=== PATIENT | male | born 1950 | race Caucasian/White ===

== ENCOUNTER → 2018-02-20 | Day surgery (SDC) | payer MEDICARE, OTHER ==
[~2018-02-20] MED LIST: BUPIVACAINE/EPINEPHRINE 0.25% PF 10 ML VIAL ONE; LACTATED RINGER'S 1000 ML INJ 1,000 ML ONE; MIDAZOLAM HCL 2 MG/2 ML VIAL ONE; ONDANSETRON HCL 4 MG/2 ML VIAL IV PUSH ONE; PROPOFOL 200 MG/20 ML AMP IV ONE; ROCURONIUM INJ 50 MG/5 ML VIAL ONE; ceFAZolin 2 GM PREMIX 50 ML ONE
--- NOTE | 2018-02-20 12:44 | TN ---
cc: Mata Ray MD DATE OF SURGERY: 02/20/2018 PREOPERATIVE DIAGNOSES: 1. Symptomatic left inguinal hernia 2. Status post laparoscopic right inguinal hernia repair 8 years ago in [place]. POSTOPERATIVE DIAGNOSES: 1. Symptomatic indirect left inguinal hernia. 2. Status post laparoscopic right inguinal hernia repair 8 years ago in [place]. PROCEDURE: Laparoscopic left inguinal hernia repair with mesh. SURGEON: Mata Ray MD LOAN AND CREDIT MANAGER: JOSELINE Lambert. ANESTHESIA: General LMA. COMPLICATIONS: None. INDICATIONS FOR PROCEDURE: Mr. Strauss is a pleasant 67-year-old gentleman who has a symptomatic left inguinal hernia. He was seen and evaluated in the office. He was found to have a moderate sized left inguinal hernia. He has a history of a right inguinal hernia. He underwent a laparoscopic repair in [place] for an indirect right inguinal hernia in 2009. Operative note showed no dissection on the left side. I therefore advised him we could attempt a laparoscopic procedure on the left side, but we might have to convert to open if the peritoneum was scarred. The patient was agreeable. DETAILS: The patient was identified, brought to the operating room, placed supine on the operating table. After adequate general anesthesia was achieved, the anterior abdomen was prepped and draped in standard surgical fashion. Infraumbilical space anesthetized with 0.25% Marcaine. Infraumbilical incision was made. Dissection was carried down to subcutaneous tissue to the anterior rectus fascia. Anterior rectus fascia was then incised transversely. Rectus muscle was identified and retracted laterally. Preperitoneal space was entered with blunt finger dissection. Blunt dissecting balloon was inserted and easily passed down to the level of the pubis just off to the left of the midline. It was then carefully insufflated under direct vision using 0-degree laparoscope. The dissection was quite smooth with no bleeding. The balloon dissecting balloon was then removed and balloon trocar inserted. Preperitoneal space was insufflated to 11 mm using CO2 gas. Next, two 5 mm trocars were placed in the lower midline under direct vision. Attention was first directed medially were Buck's ligament and pubic tubercle were identified. Dissection proceeded out laterally, identifying the cord structures exiting the internal ring. Traveling with the cord structures was a fairly large peritoneal hernia sac and cord lipoma. Using a [id number]-bwra technique, the hernia sac was carefully stripped off of the cord several centimeters away from the internal ring. The cord lipoma was also reduced out of the inguinal canal. The defect was then photographed. A posterior window was then made behind the cord structures. A piece of polypropylene mesh was inserted with a slit cut for the cord structures. Mesh was placed through the posterior window. The slit was then reapproximated, tightening the internal ring using the tacking device. Cord structures were allowed to pass through the mesh and the internal ring was not too tight. Next, the mesh was secured medially at Buck's ligament and pubic tubercle and superiorly along the posterior abdominal wall fascia. Next, an onlay mesh was placed over the first mesh in order to buttress the slit. This mesh was secured medially and laterally. Mesh was then photographed in place. Indirect and direct spaces were well covered by mesh. Preperitoneal space was then injected with additional local anesthetic. The preperitoneal space was then desufflated by holding the inferior border of the mesh down and the hernia sac up. The peritoneum was found to overlie the mesh, again with excellent coverage of the indirect and direct spaces. All trocars were removed under direct vision. There was a small amount of gas noted within the peritoneal cavity that must have entered during the peritoneal dissection. This was allowed to escape using sharp dissection on the posterior fascia and peritoneum. All gas was removed from the abdominal cavity. The anterior rectus fascia was then repaired using 0 Vicryl in a [id number] fashion. Skin was closed with 4-0 Vicryl. The patient tolerated the procedure well, was awakened and brought to Recovery in stable condition. Please note the [facility] it administrative assistant was medically necessary due to the complexity of the procedure and her surgical expertise as well as her extensive knowledge of my surgical technique. MD YOLIS Kasper/DIPAK , 12:06 PM , 12:44 PM CALE
== END | disposition home or self-care (01) ==
LOC: ESDC 09:29
PROVIDERS: ATTEND Surgery Trauma Surgery
DX: K40.90 Unilateral inguinal hernia, without obstruction or gangrene, not specified as recurrent (principal)
CPT/HCPCS: 00840; 49650; C1727; C1781; J0690; J2250; J2405; J3010; J7120